=== PATIENT | female | born 1995 | race Caucasian/White ===

== ENCOUNTER 2016-07-04 12:22 | Emergency (ER) | payer BC ==
[2016-07-04 12:39] VITALS: BP 124/73
--- NOTE | 2016-07-04 12:56 | UC ---
Throat Pain/Nasal Jordan HPI - History of Current Complaint Chief Complaint: UCRespiratory Stated Complaint: COUGH SORE THROAT EARS Time Seen by Provider: 07/04/16 12:54 Hx Last Menstrual Period: last week - Allergies/Home Medications Allergies/Adverse Reactions: Allergies Allergy/AdvReac Type Severity Reaction Status Date / Time seasonal Allergy Sneezing Uncoded 07/04/16 12:39 Home Medications: Home Medications Cetirizine* [ZyrTEC*] 10 mg PO DAILY 07/04/16 [History Confirmed 07/04/16] Lactose/ Probiotic 1 tab PO DAILY 07/04/16 [History Confirmed 07/04/16] Multivitamins/Minerals TAB* [Thera M Plus TAB*] 1 tab PO DAILY 07/04/16 [ History Confirmed 07/04/16] O C 1 tab PO QAM 07/04/16 [History Confirmed 07/04/16] PMH/Surg Hx/FS Hx/Imm Hx Respiratory History Of: Reports: Asthma - Surgical History Surgical History: Yes Surgery Procedure, Year, and Place: 2011 right knee ACL, then scar tissue removal - Social History Alcohol Use: Occasionally Substance Use Type: None Smoking Status (MU): Never Smoked Tobacco Physical Exam Vital Signs: Initial Vital Signs Temp 98.1 F 07/04/16 12:29 Pulse 82 07/04/16 12:29 Resp 22 07/04/16 12:29 BP 124/73 07/04/16 12:29 Pulse Ox 100 07/04/16 12:29
--- NOTE | 2016-07-04 13:00 | UC ---
Respiratory Complaint HPI - HPI Summary HPI Summary: 3 weeks ago had sinus infection and and b/l ear infection---now has a continued bronchospastic cough - History of Current Complaint Chief Complaint: UCRespiratory Stated Complaint: COUGH SORE THROAT EARS Time Seen by Provider: 07/04/16 12:54 Hx Obtained From: Patient Hx Last Menstrual Period: last week ?: No Onset/Duration: Gradual Onset, Lasting Weeks - 3, Still Present Timing: Constant Severity Initially: Mild Severity Currently: Mild Pain Intensity: 3 Pain Scale Used: 0-10 Numeric Character: Cough: Nonproductive Aggravating Factors: Nothing Alleviating Factors: Nothing Associated Signs And Symptoms: Positive: URI - Allergies/Home Medications Allergies/Adverse Reactions: Allergies Allergy/AdvReac Type Severity Reaction Status Date / Time seasonal Allergy Sneezing Uncoded 07/04/16 12:39 Home Medications: Home Medications Cetirizine* [ZyrTEC*] 10 mg PO DAILY 07/04/16 [History Confirmed 07/04/16] Lactose/ Probiotic 1 tab PO DAILY 07/04/16 [History Confirmed 07/04/16] Multivitamins/Minerals TAB* [Thera M Plus TAB*] 1 tab PO DAILY 07/04/16 [ History Confirmed 07/04/16] O C 1 tab PO QAM 07/04/16 [History Confirmed 07/04/16] PMH/Surg Hx/FS Hx/Imm Hx Previously Healthy: No Respiratory History Of: Reports: Asthma - Surgical History Surgical History: Yes Surgery Procedure, Year, and Place: 2011 right knee ACL, then scar tissue removal - Family History Known Family History: Positive: None Family History: no cardiovascular issues in family lineage - Social History Occupation: Student Lives: With Family Alcohol Use: Occasionally Substance Use Type: None Smoking Status (MU): Never Smoked Tobacco Review of Systems Constitutional: Negative Skin: Negative Eyes: Negative ENT: Negative Respiratory: Cough Cardiovascular: Negative Gastrointestinal: Negative Genitourinary: Negative Motor: Negative Neurovascular: Negative Musculoskeletal: Negative Neurological: Negative Psychological: Negative All Other Systems Reviewed And Are Negative: Yes Physical Exam Triage Information Reviewed: Yes Appearance: Well-Appearing, No Pain Distress, Well-Nourished Vital Signs: Initial Vital Signs Temp 98.1 F 07/04/16 12:29 Pulse 82 07/04/16 12:29 Resp 22 07/04/16 12:29 BP 124/73 07/04/16 12:29 Pulse Ox 100 07/04/16 12:29 Vital Signs Reviewed: Yes Eye Exam: Normal Eyes: Positive: Conjunctiva Clear ENT Exam: Normal ENT: Positive: Normal ENT inspection, Hearing grossly normal, Pharynx normal, TMs normal. Negative: Nasal congestion, Nasal drainage, Tonsillar swelling, Tonsillar exudate, Trismus, Muffled/hoarse voice Dental Exam: Normal Neck exam: Normal Neck: Positive: Supple, Nontender, No Lymphadenopathy Respiratory Exam: Normal Respiratory: Positive: Chest non-tender, Lungs clear, Normal breath sounds, No respiratory distress, No accessory muscle use Cardiovascular Exam: Normal Cardiovascular: Positive: RRR, No Murmur, Pulses Normal, Brisk Capillary Refill Musculoskeletal Exam: Normal Musculoskeletal: Positive: Strength Intact, ROM Intact, No Edema Neurological Exam: Normal Neurological: Positive: Alert, Muscle Tone Normal Psychological Exam: Normal Skin Exam: Normal UC Diagnostic Evaluation - Laboratory O2 Sat by Pulse Oximetry: 100 Respiratory Course/Dx - Course Course Of Treatment: albuterol, short course of Prednisode, increase fluids, mucinex is ok follow with pcp prn - Differential Dx/Diagnosis Differential Diagnosis/HQI/PQRI: Asthma, Bronchitis, Laryngitis, Sinusitis, Other - viral illness Provider Diagnoses: Post viral illness bronchospastic cough Discharge - Discharge Plan Condition: Stable Disposition: HOME Prescriptions: Albuterol HFA INHALER* [Ventolin HFA Inhaler*] 2 puff INH Q6H PRN #1 mdi PRN Reason: Cough predniSONE TAB* [Deltasone TAB*] 20 mg PO DAILY #10 tab Patient Education Materials: Bronchospasm (ED), Acute Cough (ED) Additional Instructions: Follow up with [facility] or Return as Needed to the Urgent Care
== END 2016-07-04 13:13 | disposition home or self-care (01) ==
LOC: UCCORT 12:22
DX: J98.01 Acute bronchospasm (principal)
CPT/HCPCS: 99202; G0463

== ENCOUNTER 2018-03-23 10:16 | Emergency (ER) | payer BC ==
--- NOTE | 2018-03-23 11:54 | UC ---
Throat Pain/Nasal [place] HPI - HPI Summary HPI Summary: 22 yo female presents with sinus pain/pressure/congestion, post nasal drip, sore throat, and dry cough intermittently for the last two weeks. She has been taking mucinex and a cold medicine OTC with no relief. She has a hx of asthma and has noted that she has needed to use her inhaler more often recently, but gets good relief with this. She has felt hot/cold at times, but has not taken her temperature. Her symptoms will improve for a day or two and then return. Denies SOB, chest pain, abdominal pain, n/v/d, or dysuria. - History of Current Complaint Stated Complaint: COUGH, SORE THROAT Time Seen by Provider: 03/23/18 11:54 Hx Obtained From: Patient Hx Last Menstrual Period: last week Onset/Duration: Gradual Onset Severity: Mild Pain Intensity: 4 Pain Scale Used: 0-10 Numeric Cough: Nonproductive - Allergies/Home Medications Allergies/Adverse Reactions: Allergies Allergy/AdvReac Type Severity Reaction Status Date / Time seasonal Allergy Sneezing Uncoded 03/23/18 12:03 PMH/Surg Hx/FS Hx/Imm Hx Respiratory History: Asthma - Surgical History Surgical History: Yes Surgery Procedure, Year, and Place: 2011 right knee ACL, then scar tissue removal - Family History Known Family History: Positive: None Family History: no cardiovascular issues in family lineage - Social History Occupation: Student Lives: Dormitory/Roommates Alcohol Use: Occasionally Substance Use Type: None Smoking Status (MU): Never Smoked Tobacco Review of Systems All Other Systems Reviewed And Are Negative: Yes Constitutional: Positive: Negative Skin: Positive: Negative Eyes: Positive: Negative ENT: Positive: Sore Throat, Nasal Discharge, Sinus Congestion, Sinus Pain/ Tenderness Respiratory: Positive: Cough Cardiovascular: Positive: Negative Gastrointestinal: Positive: Negative Neurovascular: Positive: Negative Neurological: Positive: Negative Psychological: Positive: Negative Physical Exam - Summary Physical Exam Summary: GENERAL: NAD. WDWN. No pain distress. SKIN: No rashes, sores, lesions, or open wounds. HEENT: Head: AT/NC Eyes: EOM intact. Conjunctiva clear without inflammation or discharge. Ears: Hearing grossly normal. TMs intact, no bulging, erythema, or edema. Nose: Nasal mucosa mildly swollen and erythematous without discharge. TTP maxillary and frontal sinus. Positive post nasal drip Throat: Posterior oropharynx without exudates, erythema, or tonsillar enlargement. Uvula midline. NECK: Supple. Nontender. No lymphadenopathy. CHEST: CTAB. No r/r/w. No accessory muscle use. Breathing comfortably and in no distress. CV: RRR. Without m/r/g. Pulses intact. NEURO: Alert. PSYCH: Age appropriate behavior. Triage Information Reviewed: Yes Vital Signs: Vital Signs: Temp Pulse Resp BP Pulse Ox 97.7 F 74 18 141/89 98 03/23/18 12:00 03/23/18 12:00 03/23/18 12:00 03/23/18 12:00 03/23/18 12:00 Vital Signs Reviewed: Yes Throat Pain/Nasal Course/Dx - Course Course Of Treatment: Sinusitis - Differential Dx/Diagnosis Provider Diagnoses: sinusitis Discharge - Sign-Out/Discharge Documenting (check all that apply): Patient Departure All imaging exams completed and their final reports reviewed: No Studies - Discharge Plan Condition: Stable Disposition: HOME Prescriptions: Amoxicillin PO (*) [Amoxicillin 875 MG (*)] 875 mg PO BID #14 tab Patient Education Materials: Sinusitis (ED) Forms: *School Release Referrals: Non Staff,Doctor [Medical Doctor] - Additional Instructions: If you develop a fever, shortness of breath, chest pain, new or worsening symptoms - please call your PCP or go to the ED. Your blood pressure was mildly elevated at todays visit. Please see your primary provider within 4 weeks for recheck and re-evaluation. - Billing Disposition and Condition Condition: STABLE Disposition: Home
[2018-03-23 12:03] VITALS: BP 141/89
== END 2018-03-23 12:16 | disposition home or self-care (01) ==
LOC: UCCORT 10:16
DX: J32.9 Chronic sinusitis, unspecified (principal)
CPT/HCPCS: 99212; G0463